=== PATIENT | female | born 1980 | race Caucasian/White ===

== ENCOUNTER 2022-11-08 06:00 | Inpatient (IN) | payer SELFPAY ==
[2022-11-08 12:09] LABS: Amylase 35 U/L (30-110); Glucose 110 mg/dL (70-100)
--- NOTE | 2022-11-08 12:36 | DI.RAD.S_ITS ---
TEST,TEST,TEST
== END 2022-11-08 12:34 | disposition home or self-care (01) | DRG 983 ==
LOC: AC 12:37
PROVIDERS: Admitting Provider Internal Medicine
DX: I10 Essential (primary) hypertension (principal)
CPT/HCPCS: 74022; 82150; 82947; 85014; G0378; G0379